=== PATIENT | male | born 1955 | race Caucasian/White ===

== ENCOUNTER → 2019-11-20 12:45 | Outpatient (POV) | payer MEDICARE, MEDICAID, SELFPAY ==
[2019-11-20 13:28] VITALS: BP 142/77; PULSE 77; RESP 18; O2SAT 98; BMI 36.6
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
== END ==
PROVIDERS: PCP Internal Medicine; Visit Provider Clinical Nurse Specialist Family Health
DX: M47.896 Other spondylosis, lumbar region (principal); M54.2 Cervicalgia; M54.12 Radiculopathy, cervical region
CPT/HCPCS: 99202

== ENCOUNTER → 2019-12-22 09:19 | Outpatient (POV) | payer MEDICARE, MEDICAID, SELFPAY ==
[2019-12-22 09:47] VITALS: BP 128/78; PULSE 74; RESP 18; TEMP 36.8; O2SAT 99; BMI 34.4
--- NOTE | 2019-12-22 11:39 | HMH.PAINSOAP ---
[facility] Pain Management SOAP Note Subjective:: Patient is pleasant 64-year-old white male who presents today for discussion after psychological evaluation for intrathecal pain pump. Patient was deemed an appropriate candidate. He was seen by Dr. Talon rosario in the past and had a stimulator placed. He states that it does help somewhat however it does not take care of his low back and left leg pain. Patient was also seen by ANGY Kilpatrick however due to a failed pill count he was discharged. At this time he is not on any narcotic medications. He states that he does not tolerate narcotic medications well. Patient is interested in a bupivacaine pain pump trial and pump. We discussed risks and benefits along with realistic goals and expectations. ROS General: no recent weight change, no fever, no sleep disturbances Respiratory: no cough, no shortness of air, no recurring pulmonary infections Cardiovascular/Peripheral Vascular: No chest pain, No palpitations, no edema, no shortness of breath. Gastrointestinal: no new onset incontinence, normal bowel movements reported Genitourinary: no new onset incontinence Musculoskeletal: Back pain, left leg pain Psychiatric: normal mood/ affect, Neurological: [denies new onset weakness in extremities], [denies new onset balance issues] Objective:: Physical Exam General: Alert and oriented x3, no acute distress, pleasant and cooperative, [on room air] Lungs: Resps E/U, Symmetrical chest expansion, Eyes: PERRL Musculoskeletal: Flexion and extension of lumbar spine somewhat guarded secondary to pain, deep tendon reflexes normal, strength in upper and lower extremities [5/5], [abnormal gait noted] Neurological: speech clear, dietitian assistant equal, no gross sensory deficits Assessment:: Degenerative disc disease lumbar spine lumbar radiculopathy, and cervical degenerative disc disease with cervical radiculopathy Plan:: We will set the patient up for a bupivacaine intrathecal pain pump trial. Patient is an appropriate psychological candidate for an intrathecal pain pump. I will follow-up with him after his trial reassess his symptoms at that time he has been instructed to call the office if he has any issues prior to his next appointment. He is not on any anticoagulation therapy. Dr. Bacon has reviewed this note and agrees with this plan of care. This note was dictated using voice recognition software and may contain errors or omissions [facility] History I have reviewed the patient's past medical history: Yes Medical History: Reports:: Hyperlipidemia, Hypertension Denies:: Diabetes Mellitus Type 1, Diabetes Mellitus Type 2 *Have you ever received a pneumonia vaccine?: Yes *Have you received a flu vaccine this season?: Yes Other Medical History: Reports: Arthritis Other Surgeries: Yes: Cholecystectomy, Hernia Repair Amputation: No Fractures: No - *Social History Smoking Status: Current every day smoker Tobacco Type: cigarettes # Packs/Day (cigarettes): 1 Alcohol Intake: never *Occupational Status:: other Housing: house Household Members: other *Travel in the last 8 weeks: None Family Hx:: Unable to obtain
== END ==
PROVIDERS: PCP Internal Medicine; Visit Provider Clinical Nurse Specialist Family Health
DX: M51.16 Intervertebral disc disorders with radiculopathy, lumbar region (principal); M50.10 Cervical disc disorder with radiculopathy, unspecified cervical region
CPT/HCPCS: 99212

== ENCOUNTER 2020-01-02 09:08 | Day surgery (SDC) | payer MEDICARE, MEDICAID, SELFPAY ==
[2020-01-02] VITALS (8 sets, daily range): BP systolic 122–167; BP diastolic 75–85; PULSE 65–89; RESP 18; TEMP 37.2; O2SAT 95–99; BMI 24.3
--- NOTE | 2020-01-02 10:15 | HMH.PMPROC ---
- Procedure Date: 01/02/20 Time: 10:15 Anesthesiologist:: Martinez Bacon MD Complications:: None Pre-procedure Diagnosis:: Degenerative disc disease of lumbar spine with lumbar radiculopathy symptoms and postlaminectomy syndrome lumbar spine Post-procedure Diagnosis:: Same Indications for Procedure:: This patient is a pleasant 64-year-old white male who we have been treating for low back pain with lumbar radiculopathy symptoms and postlaminectomy syndrome lumbar spine. He does have a spinal cord stimulator in place. He is doing well with his stimulator. He does have some increasing pain in his back and down his legs. He does not do well with opioids. He was recently discharged from Dr. Kilpatrick pain clinic for a missed pill count. He is failed all previous conservative therapy including previous surgery, injections, physical therapy and oral medications. He has had a successful psychological evaluation. He presents for intrathecal pump trial with bupivacaine today. Procedure Details:: Pain pump trial Informed consent was obtained and the risk and benefits of the procedure was explained to the patient. The patient was taken to the procedure room and placed prone on the procedure table. Patient was prepped and draped in sterile fashion. C-arm fluoroscopy was used to view the lumbar spine. The skin and subcutaneous tissues were anesthetized using lidocaine. I placed a 18-gauge spinal needle into the L4-5 interspace and advanced until clear CSF was obtained. After this intrathecal catheter was inserted and advanced very easily to the L1 vertebral body. The needle was withdrawn. We were able to freely withdraw clear CSF through the catheter. We then injected intrathecal bupivacaine with dextrose 3 mg single shot bolus followed by saline and followed by the previous CSF that was withdrawn. The needle and catheter were then removed and a Band-Aid was placed. Patient tolerated the procedure well with no complications. We reevaluated the patient after 30 minutes to 1 hour. He was also reassessed by physical therapy. He had significant pain relief. However I am not sure the patient really understands the implications of an intrathecal bupivacaine pain pump. I would like him seen in the clinic prior to proceeding with permanent placement. Plan and Disposition:: We will follow-up with him in the clinic to reevaluate his symptoms and make sure that he understands everything about the permanent intrathecal bupivacaine pain pump. We will also follow-up on his psychological evaluation to make sure he is an appropriate candidate for intrathecal therapy.
== END 2020-01-02 11:50 | disposition home or self-care (01) ==
LOC: SC.PAINP 09:11
PROVIDERS: PCP Internal Medicine; Visit Provider Anesthesiology
DX: M51.16 Intervertebral disc disorders with radiculopathy, lumbar region (principal); M96.1 Postlaminectomy syndrome, not elsewhere classified; I10 Essential (primary) hypertension; M79.7 Fibromyalgia; J44.9 Chronic obstructive pulmonary disease, unspecified; Z90.49 Acquired absence of other specified parts of digestive tract; Z72.0 Tobacco use
CPT/HCPCS: 62323; 96365

== ENCOUNTER → 2020-01-08 11:19 | Outpatient (POV) | payer MEDICARE, MEDICAID, SELFPAY ==
[2020-01-08 11:42] VITALS: BP 145/90; PULSE 74; RESP 18; TEMP 36.8; O2SAT 98; BMI 26.4
--- NOTE | 2020-01-08 12:28 | HMH.PAINSOAP ---
[facility] Pain Management SOAP Note Subjective:: Patient is a 64-year-old white male who presents today for follow-up after a intrathecal pain pump trial. He has been treated for chronic low back pain with lumbar radiculopathy symptoms as well as postlaminectomy syndrome lumbar spine. Patient does have a spinal cord stimulator. He is having pain in his low back with radiation into bilateral lower extremities. Patient was seen in a pain clinic in the past Dr. Kilpatrick clinic in [facility] and was receiving oral medications. Unfortunately, the patient did fail a pill count and, subsequently, was discharged from the clinic. Patient does not feel that the intrathecal trial gave him any relief. He does rate his pain a 7 out of 10 today. Says that he is unsure if he wants to continue with the intrathecal pain pump implant. He is more interested in oral medications. He and I did discuss that we do not prescribe oral medications due to the patient's recent failed pill count. Review of Systems General: No recent weight changes, no fever, no sleep disturbances Respiratory: No cough, no shortness of air, no recurring pulmonary infections Cardiovascular/peripheral vascular: No chest pain, no palpitations, no edema, no shortness of breath Gastrointestinal: No new onset incontinence, normal bowel movements reported Genitourinary: No new onset incontinence Musculoskeletal: Low back pain, bilateral lower extremity pain Psychiatric: Normal mood/affect Neurological: [Denies weakness in extremities], [denies balance issues] Objective:: Physical exam General: Alert and oriented x3, no acute distress, pleasant and cooperative, [on room air] Lungs: Respirations even and unlabored, symmetrical chest expansion Eyes: PERRL Musculoskeletal: Flexion and extension of bar spine somewhat guarded secondary to pain, deep tendon reflexes normal, strength in upper and lower extremities [5/5], antalgic gait noted Neurological: Speech clear, vault person equal, no gross sensory deficit Assessment:: Degenerative disc disease lumbar spine with lumbar radiculopathy symptoms, postlaminectomy syndrome lumbar spine Plan:: Patient is interested in oral medications, however, he and I did have a long conversation regarding his failed pill count and our inability to prescribe him oral medications. He is unsure if he wants to continue with the intrathecal pain pump implant. Patient will discuss possible oral medication management with his primary care provider and possible referral to another pain management clinic. He will be scheduled for a one-month follow-up and can decide at that time if he would like to proceed with the implant. We will follow-up with him at that time. He has been instructed to contact clinic if he has any concerns before his next appointment. The patient and I specifically discussed risk factors for COVID19. These risks include, but are not limited to age greater than 60, heart or lung disease, diabetes, immunosuppression, and travel. We also discussed NSAIDs may worsen COVID19 infection or symptoms. Patient should not use NSAIDs to treat COVID19 signs or symptoms. Patient was also informed that any type of corticosteroid of any form (oral or injection) will decrease the patient's immune system response and may increase the likelihood of COVID19 infection [address] symptoms[address] Bacon has reviewed this note and agrees with this plan of care. This note was dictated using voice recognition software and make contain errors or omissions. [facility] History I have reviewed the patient's past medical history: Yes Medical History: Reports:: Hyperlipidemia, Hypertension Denies:: Cancer, Diabetes Mellitus Type 1, Diabetes Mellitus Type 2, MRSA, Seizures *Have you ever received a pneumonia vaccine?: Yes *Have you received a flu vaccine this season?: Yes Other Medical History: Reports: Arthritis Other Surgeries: Yes: Cholecystectomy, Hernia Repair Amputation: No Frac
== END ==
PROVIDERS: PCP Internal Medicine; Visit Provider Clinical Nurse Specialist Family Health
DX: M51.16 Intervertebral disc disorders with radiculopathy, lumbar region (principal); M96.1 Postlaminectomy syndrome, not elsewhere classified
CPT/HCPCS: 99212

== ENCOUNTER → 2020-02-20 10:16 | Outpatient (POV) | payer MEDICARE, MEDICAID, SELFPAY ==
[2020-02-20 10:27] VITALS: BP 163/90; PULSE 76; RESP 20; TEMP 36.7; O2SAT 98; BMI 33.0
--- NOTE | 2020-02-20 10:41 | HMH.PAINSOAP ---
[facility] Pain Management SOAP Note Subjective:: This patient is a pleasant 64-year-old white male who had intrathecal pain pump trial for low back pain with lumbar radiculopathy symptoms. He does have a spinal cord stimulator in place which is helping with his radicular symptoms however he still has some significant back pain. He is also had previous surgery with postlaminectomy syndrome. He was previously discharged from Dr. Finesse estevez for failing a pill count. I have told him that we will not prescribe any oral narcotics. Patient did say that the intrathecal pain pump trial did help for that day. This was a successful intrathecal pump trial. We will plan on permanent placement of intrathecal pain pump with bupivacaine 5 mg per ml to start at 2.5 mg/day Objective:: Alert and oriented x3 no acute distress. Type patient does have an antalgic gait. Motor strength of lower extremities is 5/5. There is no gross sensory deficit. He does have significant pain over the lower lumbar spine. Assessment:: Degenerative disease of lumbar spine with lumbar radiculopathy symptoms and postlaminectomy syndrome lumbar spine Plan:: We will plan on permanent placement of intrathecal bupivacaine pain pump 5 mg per ml to start at 2.5 mg/day. Catheter tip will be at the L1 vertebral body. We will have him see Dr. Choudhury prior to permanent placement for evaluation of permanent placement of the battery. We will confirm that Jaylan and urine drug screen are appropriate prior to permanent placement. He has had an appropriate psychological evaluation. [facility] History Medical History: Reports:: Hyperlipidemia, Hypertension Denies:: Cancer, Diabetes Mellitus Type 1, Diabetes Mellitus Type 2, MRSA, Seizures *Have you ever received a pneumonia vaccine?: No *Have you received a flu vaccine this season?: No Other Medical History: Reports: Arthritis Other Surgeries: Yes: Cholecystectomy, Hernia Repair Amputation: No Fractures: No - *Social History Smoking Status: Current every day smoker Tobacco Type: cigarettes # Packs/Day (cigarettes): 1 Alcohol Intake: never *Occupational Status:: other Housing: house Household Members: other *Travel in the last 8 weeks: None Family Hx:: Unable to obtain
== END ==
PROVIDERS: PCP Internal Medicine; Visit Provider Anesthesiology
DX: M51.16 Intervertebral disc disorders with radiculopathy, lumbar region (principal); M96.1 Postlaminectomy syndrome, not elsewhere classified
CPT/HCPCS: 99212

== ENCOUNTER → 2020-04-20 09:27 | Outpatient (CLI) | payer MEDICARE, MEDICAID, SELFPAY ==
[2020-04-20 10:14] LABS: Basophils # 0.2 K/mm3 (0-0.2); Basophils % 1.6 % (0.1-2.0); Eosinophils # 0.3 K/mm3 (0.0-0.4); Eosinophils % 3.1 % (0.1-12.0); Hematocrit 52.7 % (42.0-52.0); Hemoglobin 17.9 g/dL (14.1-18.0); Lymphocytes # 4.1 K/mm3 (0.7-4.5); Lymphocytes % 37.5 % (10-50); Mean Corpuscular Hemoglobin 32.7 pg (27.0-31.2); Mean Corpuscular Volume 96.1 fl (80-94); Mean Platelet Volume 7.9 fl (7.4-10.4); Monocytes # 0.8 K/mm3 (0.1-1.0); Monocytes % 6.9 % (1.7-9.3); Neutrophils # 5.5 K/mm3 (1.8-7.8); Neutrophils % 50.9 % (37.0-80.0); Platelet Count 250 K/mm3 (142-424); Red Blood Count 5.48 M/mm3 (4.60-6.20); Red Cell Distribution Width 13.9 % (11.5-17.5); White Blood Count 10.9 K/mm3 (4.8-10.8)
[2020-04-20 10:23] LABS: Amphetamine/Metha Screen,Urine Negative ng/ml (<1000); Barbiturates Screen,Urine Negative ng/ml (<200)
[2020-04-20 10:24] LABS: Benzodiazepines Screen,Urine Negative ng/ml (<200)
[2020-04-20 10:25] LABS: Cannabinoid Screen,Urine Negative ng/ml (<50); Cocaine Screen,Urine Negative ng/ml (<300)
[2020-04-20 10:26] LABS: Methadone Screen,Urine Negative ng/ml (<300)
[2020-04-20 10:27] LABS: Opiate Screen,Urine Negative ng/ml (<300); Phencyclidine Screen,Urine Negative ng/ml (<25)
[2020-04-20 11:23] LABS: Coronavirus 19 IgG Antibody Negative (Negative); Coronavirus 19 IgM Antibody Negative (Negative)
[2020-04-20 15:19] LABS: Chloride 103 mmol/L (98-107); Potassium 4.4 mmoL/L (3.5-5.1); Sodium 138 mmol/L (136-145)
[2020-04-20 15:22] LABS: Anion Gap 12.4 mEq/L (5-15); Blood Urea Nitrogen 14 mg/dl (9-20); Calcium 9.8 mg/dl (8.4-10.2); Carbon Dioxide 27 mmol/L (22.0-30.0); Estimated Glomerular Filt Rate 85 ml/min (>60); GFR (African American) 103 ML/MIN (>60); Glucose 148 mg/dl (74-100)
== END ==
PROVIDERS: Visit Provider Anesthesiology
DX: Z01.818 Encounter for other preprocedural examination (principal); Z03.818 Encounter for observation for suspected exposure to other biological agents ruled out; M51.36 Other intervertebral disc degeneration, lumbar region
CPT/HCPCS: 36415; 80048; 80305; 85025; 86328

== ENCOUNTER 2020-04-21 07:05 | Day surgery (SDC) | payer MEDICARE, MEDICAID, SELFPAY ==
[2020-04-21 08:09] VITALS: BP 154/81; PULSE 63; RESP 16; TEMP 36.1; O2SAT 96; BMI 34.4
--- NOTE | 2020-04-21 08:32 | P.CONS_ITS ---
Assessment and Plan - Assessment and plan all Dx Assessment and Plan for all problems:: Impression-degenerative disc disease of the lumbar spine with radiculopathy Plan-placement of intrathecal pain pump system today HPI - Data of Consult Patient: new to practice Consult date: 04/21/20 Requesting Physician: Martinez Bacon MD Primary Care Provider: Wolf Perales - Consult Narrative History of present illness: Mr. Nathan is a 65 year old male with chronic back pain. Patient had a stimulator placed improvement in some of his pain. He had a pain pump trial with improvement in his residual pain. He comes in today for placement of an intrathecal pain pump system. CC: Martinez Bacon MD Back pain [facility] History I have reviewed the patient's past medical history: Yes Medical History: Reports:: Hyperlipidemia, Hypertension Denies:: Cancer, Diabetes Mellitus Type 1, Diabetes Mellitus Type 2, Internal Pacemaker, MRSA, Seizures *Have you ever received a pneumonia vaccine?: No *Have you received a flu vaccine this season?: No Other Medical History: Reports: Arthritis. Denies: Blood Transfusion Reaction Comment:: Illnesses-cigarette abuse, chronic back pain, hypertension, COPD with asthma, fibromyalgia Other Surgeries: Yes: Cholecystectomy, Hernia Repair. No: Pacemaker Amputation: No Fractures: No Comment: Operations-hernia repair, ear surgery, placement of pain stimulator system - *Social History Last grade of school completed: 11th or 12th Smoking Status: Current every day smoker Tobacco Type: cigarettes # Packs/Day (cigarettes): 1 Alcohol Intake: never *Occupational Status:: unemployed Housing: house Household Members: none *Travel in the last 8 weeks: None Family Hx:: Unable to obtain Review of Systems - Review of Systems Review of systems:: pertinent systems reviewed and negative unless documented below Meds Home Medications Medication Instructions Recorded Confirmed Type Loratadine 10 mg PO DAILY 11/20/19 04/21/20 History Metoprolol Succinate [Metoprolol 25 mg PO DAILY 11/20/19 04/21/20 History Succinate 25mg Tablet*] Omeprazole [Omeprazole 40mg 40 mg PO DAILY 11/20/19 04/21/20 History Capsule] Pravastatin Sodium 80 mg PO HS 11/20/19 04/21/20 History Tamsulosin HCl 0.4 mg PO DAILY 11/20/19 04/21/20 History Allergies Allergy/AdvReac Type Severity Reaction Status Date / Time No Known Allergies Allergy Verified 04/21/20 08:08 Objective Vital signs: Temp Pulse Resp BP Pulse Ox 97.0 F L 63 16 154/81 H 96 04/21/20 08:09 04/21/20 08:09 04/21/20 08:09 04/21/20 08:09 04/21/20 08:09 Comments: Pale white male in no distress - *Routine Respiratory Exam Present: CTA bilaterally Comments: Decreased breath sounds - *Routine Cardiovascular Exam Present: RRR - *Routine Abdominal Exam Present: soft
--- NOTE | 2020-04-21 10:12 | HMH.ANESCL ---
[facility] Anesthesia Checklist - Patient Identification Patient Identification: Arm Band, Verbal (Name & ) - Structural Data Admitted From: Home Planned Operative Procedure/s: Placement of intrathecal pain pump Consent for Planned Operative Procedure(s) Verified: Yes Verified Documents: Surgical Consent, History and Physical - NPO Status Verified Time NPO: 00:00 - Chart Verification Results Verified: CBC, BMP - Additional verifications Anesthesia Reactions: No Hx Blood Transfusions: No Blood Transfusion Reaction: No - Airway Assessment C-Spine Mobility Assessed: Yes (limited neck ROM, MP 2, TMD 3) TMJ Mobility Assessed: Yes Dentition: Edentulous - Neurological Assessment Level of Consciousness: Awake, Alert, Appropriate, Follows Commands Hx Seizures: No Numbness or tingling in extremities: No - Anesthesia Plan Anesthesia Risk discussed: Yes Anesthesia Plan: Verified ASA Class: III Anesthesia Type: [facility] History I have reviewed the patient's past medical history: Yes Medical History: Reports:: Asthma, Chronic Obstructive Pulmonary Disease (COPD), Gastroesophageal Reflux Disease(GERD), Hyperlipidemia, Hypertension Denies:: Cancer, Diabetes Mellitus Type 1, Diabetes Mellitus Type 2, Internal Pacemaker, MRSA, Seizures *Have you ever received a pneumonia vaccine?: No *Have you received a flu vaccine this season?: No Other Medical History: Reports: Arthritis. Denies: Blood Transfusion Reaction Comment:: obesity Anesthesia experience/problems:: None Other Surgeries: Yes: Cholecystectomy, Hernia Repair. No: Pacemaker Amputation: No Fractures: No - *Social History Last grade of school completed: 11th or 12th Smoking Status: Current every day smoker Tobacco Type: cigarettes # Packs/Day (cigarettes): 1 Alcohol Intake: never Substance Use Type: denies use *Occupational Status:: unemployed Housing: house Household Members: none *Travel in the last 8 weeks: None Family Hx:: Unable to obtain
[2020-04-21 10:55] VITALS: TEMP 43; TEMP 6.1
--- NOTE | 2020-04-21 11:10 | HMH.OPNOTE ---
Date of procedure: 04/21/20 Pre-op Diagnosis:: Degenerative disc disease of the lumbar spine with radiculopathy Post-op Diagnosis:: Same Procedure performed:: Placement of intrathecal pain pump generator Surgeon:: Leobardo Choudhury MD [employer] ADMINISTRATOR:: Homero Fairchild, Olegario Malone, Dank Chowdhury, Flaquito Swan, Federico Anesthesia: MAC Estimated blood loss (mL): 5 Operative findings:: Not applicable Operative note:: Once adequate IV sedation was obtained by anesthesia and local anesthesia was 1% Xylocaine with epinephrine the patient was placed prone on the operating table in his back and flank regions were prepped and draped in sterile fashion. Paraspinal incision was made by Dr. Garcai there which an intrathecal catheter was passed into the intrathecal space to the area desired by Dr. Garcia. The catheter was then fixed the paraspinal fascia with fixation devices and 2-0 Prolene sutures. A left flank incision was then made under his right a pocket for placement of the reservoir. Utilizing towel device the catheter was passed from the paraspinal incision to the pocket incision. Both pockets irrigated with antibiotic solution. Catheter fixed to the generator which was placed in the pocket. CSF was aspirated from the generator noting patency of the system. Subcutaneous tissue was then closed with a stitch of 2-0 Vicryl and skin closed with stitches of 4-0 nylon. Wound VAC dressings and a binder applied to the wound. The patient taught procedure well was taken recovery solution. Upon recovery the patient will be discharged home will follow-up in 1 week for removal of the wound VAC system in 2 weeks removal of sutures. Antibiotic x1 week per protocol. The patient tolerated the procedure well. Condition: stable Disposition: PACU Complications:: None
[2020-04-21 11:22] VITALS: BP 140/78; PULSE 82; RESP 18; TEMP 36.3; O2SAT 95
--- NOTE | 2020-04-21 11:23 | HMH.OPNOTE ---
Date of procedure: 04/21/20 Pre-op Diagnosis:: Degenerative disc disease of lumbar spine with lumbar radiculopathy symptoms and postlaminectomy syndrome lumbar spine Post-op Diagnosis:: Same Procedure performed:: Intrathecal catheter placement with tunneling for permanent intrathecal pain pump Surgeon:: Martinez Bcaon MD TEST KITCHEN HOME ECONOMIST:: Homero Fairchild Anesthesia: MAC Estimated blood loss (mL): 5 Clinical Note:: This patient is a pleasant 64-year-old white male who we are treating for low back pain with lumbar radicular symptoms. He is failed all previous conservative treatments. He has had failed previous injections, oral medications. He was previously discharged from Dr. Finesse estevez for failing a pill count. We will not prescribe him any oral narcotics. He is also failed previous surgery and physical therapy. He has had a successful psychological evaluation. He is also had a successful intrathecal pump trial. He also has a spinal cord stimulator in place. He continues to have increasing low back pain. We will plan on permanent placement of intrathecal pain pump today. Operative findings:: None Operative note:: Informed consent was obtained and the risk and benefits of the procedure was explained to the patient. Patient was taken to the operating room placed prone on the procedure table. He was prepped and draped in sterile fashion. C-arm fluoroscopy was used to view the lumbar spine. The skin and subcutaneous tissues adjacent to the L4-L5 and L5-S1 interspace were anesthetized using lidocaine. I made an incision and dissected down to the lumbar paraspinous fascia. A 14-gauge spinal needle was inserted and advanced into the L4-5 interspace until clear CSF was obtained. After this intrathecal catheter was inserted and advanced very easily to the L1 vertebral body. The stylette of the catheter and the needle withdrawn. The catheter secured to the fascia with 2 anchoring devices and 2-0 Prolene. I tunneled the catheter from the back to the pump pocket created by Dr. Choudhury. I had prepared the pump with 20 mL of intrathecal bupivacaine 5 mg/mL. I attached the catheter to the pump. We placed the pump in the pump pocket. We were able to freely withdraw clear CSF through the side-port. Both incisions were irrigated with bacitracin solution. Both incisions were then closed with 2-0 Vicryl followed by 4-0 nylon. A wound VAC was placed over both incisions. The patient was placed in a abdominal binder and taken recovery in stable condition. Patient tolerated the procedure well with no complications. The pump was interrogated and started at 2.5 mg/day of intrathecal bupivacaine. Patient was discharged home neurologically intact and with good relief of pain symptoms. Plan and disposition: We will follow-up with this patient in 1 week for wound check and reprogramming. We will follow-up in 2 weeks for suture removal and reprogramming. If patient has any problems or questions he is to call us back in the pain clinic. Condition: stable Disposition: PACU Complications:: None
[2020-04-21 11:37] VITALS: BP 133/89; PULSE 71; RESP 18; O2SAT 97
[2020-04-21 11:52] VITALS: BP 138/82; PULSE 80; RESP 18; O2SAT 97
--- NOTE | 2020-04-22 12:09 | PC.NURSE ---
called in Rx for Tramadol 50mg TID # 15 per md order.
== END 2020-04-21 11:52 | disposition home or self-care (01) ==
PROVIDERS: PCP Internal Medicine; Visit Provider Anesthesiology
DX: M51.16 Intervertebral disc disorders with radiculopathy, lumbar region (principal); M96.1 Postlaminectomy syndrome, not elsewhere classified; E78.5 Hyperlipidemia, unspecified; I10 Essential (primary) hypertension; M19.90 Unspecified osteoarthritis, unspecified site; J44.9 Chronic obstructive pulmonary disease, unspecified; M79.7 Fibromyalgia; Z72.0 Tobacco use; Z79.899 Other long term (current) drug therapy
CPT/HCPCS: 62350; 62362; 96374; C1755; C1772; J3370

== ENCOUNTER → 2020-04-26 09:56 | Outpatient (POV) | payer MEDICARE, MEDICAID, SELFPAY ==
--- NOTE | 2020-04-26 10:29 | HMH.PMPROC ---
- Procedure Date: 04/26/20 Time: 10:29 Anesthesiologist:: Inga Estrella APRN Complications:: None Pre-procedure Diagnosis:: Degenerative disc disease lumbar spine lumbar radiculopathy symptoms and postlaminectomy syndrome lumbar spine Post-procedure Diagnosis:: Same Indications for Procedure:: Patient is a pleasant 9-[id number]-dsc-year-old white male who presents today for intrathecal pain pump adjustment. Patient has failed previous conservative treatments. He is failed previous injections, oral medications. He has been discharged from Dr. Kilpatrick clinic for failing a pill count. He was started on a bupivacaine infusion of 2.5 mg/day he states he is not having any numbness or weakness or any kind of side effects to this. His wound VAC was removed stitches are intact and in place. Patient rates his pain a 4 out of 10. He would like a slight increase today. Physical Exam General: Alert and oriented x3, no acute distress, pleasant and cooperative, [on room air] Lungs: Resps E/U, Symmetrical chest expansion, Eyes: PERRL Musculoskeletal: Flexion and extension of lumbar spine somewhat guarded secondary to pain, deep tendon reflexes normal, strength in upper and lower extremities [5/5], [abnormal gait noted] Neurological: speech clear, human services professional equal, no gross sensory deficits Procedure Details:: Informed consent was obtained and the risk and benefits of the procedure were explained to the patient. The patient was taken to the procedure room where noninvasive monitoring was placed including noninvasive blood pressure cuff and pulse oximeter. Patient's pump was interrogated and reprogrammed. The infusion rate was increased to 3 mg of bupivacaine a day. The patient tolerated the procedure well. Plan and Disposition:: We will see the patient back in 2 weeks reassess his symptoms at that time he has been instructed to call the office if he has any issues prior to his next appointment. Dr. Bacon has reviewed this note and agrees with this plan of care. This note was dictated using voice recognition software and may contain errors or omissions
[2020-04-26 10:43] VITALS: BP 136/85; PULSE 74; RESP 18; O2SAT 98; BMI 33.4
== END ==
PROVIDERS: Visit Provider Clinical Nurse Specialist Family Health
DX: M51.16 Intervertebral disc disorders with radiculopathy, lumbar region (principal); M96.1 Postlaminectomy syndrome, not elsewhere classified
CPT/HCPCS: 62368

== ENCOUNTER → 2020-05-10 08:57 | Outpatient (POV) | payer MEDICARE, MEDICAID, SELFPAY ==
[2020-05-10 09:12] VITALS: BP 141/75; PULSE 77; RESP 18; TEMP 36.8; O2SAT 98; BMI 32.3
--- NOTE | 2020-05-10 09:18 | HMH.PMPROC ---
- Procedure Date: 05/10/20 Time: 09:18 Anesthesiologist:: Inga Estrella APRN Complications:: None Pre-procedure Diagnosis:: Degenerative disc disease lumbar spine lumbar radiculopathy symptoms and postlaminectomy syndrome lumbar spine Post-procedure Diagnosis:: Same Indications for Procedure:: Patient is a very pleasant 65-year-old white male who presents today for intrathecal pain pump adjustment. He has failed previous conservative treatments. He is failed previous injections and was started on a bupivacaine infusion intrathecally. He has been discharged from Dr. Kilpatrick clinic for failing a pill count in the past. Patient will have his stitches removed today overall he is doing well however he is having some right hip and leg numbness. He rates his pain today 3 out of 10. He states that this numbness is worse in the morning when he gets up. We will switch him to multiple right and decrease the amount of medication he is getting at nighttime. Procedure Details:: Informed consent was obtained and the risk and benefits of the procedure were explained to the patient. The patient was taken to the procedure room where noninvasive monitoring was placed including noninvasive blood pressure cuff and pulse oximeter. Patient's pump was interrogated and reprogrammed. The infusion rate was changed to 1 mg between 10 PM and 7 AM and 2 mg between 7 AM and 10 PM for total daily dose of 3 mg/day. The patient tolerated the procedure well. Plan and Disposition:: We will follow up with the patient at his next intrathecal pain pump refill and reprogram he has been instructed to call the office if he has any issues prior to his next appointment. Dr. Bacon has reviewed this note and agrees with this plan of care. This note was dictated using voice recognition software and may contain errors or omissions
== END ==
PROVIDERS: Visit Provider Clinical Nurse Specialist Family Health
DX: M51.16 Intervertebral disc disorders with radiculopathy, lumbar region (principal); M96.1 Postlaminectomy syndrome, not elsewhere classified
CPT/HCPCS: 62368

== ENCOUNTER 2020-05-21 09:58 | Day surgery (SDC) | payer MEDICARE, MEDICAID, SELFPAY ==
[2020-05-21 10:42] VITALS: BP 120/76; PULSE 70; RESP 18; TEMP 36.1; O2SAT 97; BMI 31.3
[2020-05-21 11:13] VITALS: BP 125/85; PULSE 85; RESP 18; O2SAT 98
[2020-05-21 11:21] VITALS: BP 132/85; PULSE 85; RESP 18; O2SAT 99
--- NOTE | 2020-05-21 11:24 | P.PCN_ITS ---
- Procedure Date: 05/21/20 Time: 11:24 Anesthesiologist:: Martinez Bacon MD Complications:: None Pre-procedure Diagnosis:: Degenerative disc disease of lumbar spine with lumbar radiculopathy symptoms and postlaminectomy syndrome lumbar spine Post-procedure Diagnosis:: Same Indications for Procedure:: This patient is a pleasant 65-year-old white male who we are treating for low back pain with lumbar radiculopathy symptoms. He has been started on intrathecal bupivacaine infusion because he failed previous pill counts and is not a candidate for any narcotic therapy. He continues have some significant numbness with periodic flow of intrathecal bupivacaine. This is also not helping his pain very much. We will switch him back to a constant flow and given PTC boluses of 0.3 mg up to 6 times a day. This to be a 4-hour lockout. Jaylan and urine drug screen are all appropriate Jaylan [phone]. We will refill his pump with 20 mils of intrathecal bupivacaine and increase his yulia ntration to 10 mg/mL. He does have an antalgic gait. Motor strength of the lower extremities is 5/5. There is no gross sensory deficit. He only has episodic numbness of his right leg. No neurological changes. Procedure Details:: Pain pump refill informed consent was obtained and the risks and benefits of the procedure was explained to the patient. The patient was taken to the procedure room. The pump was interrogated. The area over the pump was prepped using ChloraPrep. The pump was accessed with a 22-gauge needle. Approximately 2 mL's of the intrathecal solution was withdrawn and discarded. The pump was then refilled with 20 mL's of intrathecal bupivacaine 10 mg/mL. The pump was interrogated and the infusion was changed to 3 mg/day of intrathecal bupivacaine constant flow with PTC boluses of 0.3 mg up to 6 times a day with a 4-hour lockout. The patient tolerated the procedure well with no complication. Plan and Disposition:: We will follow-up with him in 2 weeks. Will reevaluate symptoms at that time.
[2020-05-21 11:35] VITALS: BP 148/89; PULSE 68; RESP 20; O2SAT 97
== END 2020-05-21 11:35 | disposition home or self-care (01) ==
LOC: SC.PAINP 09:59
PROVIDERS: PCP Internal Medicine; Visit Provider Anesthesiology
DX: M51.16 Intervertebral disc disorders with radiculopathy, lumbar region (principal); M96.1 Postlaminectomy syndrome, not elsewhere classified
CPT/HCPCS: 95991

== ENCOUNTER → 2020-07-08 08:03 | Outpatient (POV) | payer MEDICARE, SELFPAY ==
[2020-07-08 08:15] VITALS: BP 150/82; PULSE 82; RESP 20; TEMP 36.3; O2SAT 96; BMI 29.8
--- NOTE | 2020-07-08 08:29 | HMH.PAINSOAP ---
[facility] Pain Management SOAP Note Subjective:: Patient is a 65-year-old white male who presents today for complaints of severe numbness from his waist down. Patient does have an intrathecal pain pump for which he is being treated for pain due to degenerative disc disease lumbar spine with lumbar radiculopathy symptoms and postlaminectomy syndrome lumbar spine. Patient says that he has fallen approximately 3 or 4 times, questioning if he is injured his left shoulder. He says that he is also having difficulty voiding due to the severe numbness. He is very concerned that he is not able to tolerate the medication. He is asking for a change in the medicine. Patient does have a history of a failed pill count at Dr. ANGY Kilpatrick's office. He was discharged from Dr. Kilpatrick clinic, as a result. Before implanting the pump, he and I did discuss that we would likely not be able to use any type of controlled substance in the pump. He is accompanied by his Sister Alma Summers who is a patient also in our clinic with an intrathecal pump. She is asking that we place pain meds in the pump . Patient I did discuss that we would need to discuss this with Dr. CRISELDA Fields before proceeding. Review of Systems General: No recent weight changes, no fever, no sleep disturbances Respiratory: No cough, no shortness of air, no recurring pulmonary infections Cardiovascular/peripheral vascular: No chest pain, no palpitations, no edema, no shortness of breath Gastrointestinal: No new onset incontinence, normal bowel movements reported Genitourinary: Inability to void Musculoskeletal: Numbness from waist down with inability to void Psychiatric: Normal mood/affect Neurological: Weakness in lower extremities, recent falls Objective:: Physical exam General: Alert and oriented x3, no acute distress, pleasant and cooperative, [on room air] Lungs: Respirations even and unlabored, symmetrical chest expansion Eyes: PERRL Musculoskeletal: Flexion and extension of spine non Guarded secondary to pain, deep tendon reflexes normal, strength in upper and lower extremities [5/5], [abnormal gait noted] Neurological: Speech clear, elementary special education teacher equal, no gross sensory deficit Assessment:: Degenerative disc disease lumbar spine with lumbar radiculopathy symptoms, postlaminectomy syndrome lumbar spine Plan:: Patient's pump was placed at 0 mg/day today. There is concern for the patient falling. He is also having difficulty voiding due to the medication. Patient is complaining of left shoulder pain as well as due to the fall. We will send him for an x-ray of his left shoulder. I will discuss a further plan of care with Dr. Jain and contact the family today regarding the plan of care. I am uncertain that we will be able to put any other medication in his intrathecal pump. We will contact his Sister Alma Renee at [phone] after further discussion with Dr. Jain. Dr. Bacon has reviewed this note and agrees with this plan of care. This note was dictated using voice recognition software and make contain errors or omissions. [facility] History I have reviewed the patient's past medical history: Yes Medical History: Reports:: Asthma, Chronic Obstructive Pulmonary Disease (COPD), Gastroesophageal Reflux Disease(GERD), Hyperlipidemia, Hypertension Denies:: Cancer, Diabetes Mellitus Type 1, Diabetes Mellitus Type 2, Internal Pacemaker, MRSA, Seizures *Have you ever received a pneumonia vaccine?: No *Have you received a flu vaccine this season?: No Other Medical History: Reports: Arthritis. Denies: Blood Transfusion Reaction Other Surgeries: Yes: Cholecystectomy, Hernia Repair. No: Pacemaker Amputation: No Fractures: No - *Social History Smoking Status: Current every day smoker Tobacco Type: cigarettes # Packs/Day (cigarettes): 1 Alcohol Intake: never Substance Use Type: denies use *Occupational Status:: retired Housing: house Household Members: spouse *Travel in the last 8 weeks: None Family Hx::
--- NOTE | 2020-07-08 08:36 | XR_ITS ---
PROCEDURE: XR SHOULDER LT MIN 2V CLINICAL INDICATION: LT SHOULDER PAIN COMPARISON: No exams were available for comparison FINDINGS: No fracture or dislocation. No lytic or blastic change. There is normal mineralization. There are mild osteoarthritic changes at the acromioclavicular joint with spurring along the undersurface of the acromion Other findings:None. IMPRESSION: No acute fracture. Spurring along the undersurface of the acromion with mild osteoarthritis of the AC joint Dictated by: Kp Woods MD 07/08/2020 14:16 Kp Woods MD in [place] 07/08/2020 14:16
== END ==
LOC: SC.PAIN 08:06
PROVIDERS: PCP Internal Medicine; Visit Provider Clinical Nurse Specialist Family Health
DX: M51.16 Intervertebral disc disorders with radiculopathy, lumbar region (principal); M96.1 Postlaminectomy syndrome, not elsewhere classified; M25.519 Pain in unspecified shoulder
CPT/HCPCS: 62368; 73030

== ENCOUNTER → 2020-07-16 10:49 | Outpatient (POV) | payer MEDICARE, SELFPAY ==
[2020-07-16 11:51] VITALS: BP 158/76; PULSE 69; RESP 18; O2SAT 98; BMI 34.4
--- NOTE | 2020-07-16 12:07 | P.CONS_ITS ---
[facility] Pain Management SOAP Note Subjective:: This patient is a pleasant 65-year-old white male who we are treating for left shoulder pain and low back pain with lumbar radiculopathy symptoms. We are seeking approval for a left shoulder intra-articular injection. We are awaiting approval for this injection as he has significant pain in the left shoulder joint. We have turned his pump off as he was complaining of numbness with his intrathecal bupivacaine infusion. He has a problem with narcotics in the past so we will not be filling his pump with intrathecal narcotics so we will seek approval for another nonnarcotic medication which is ziconotide. Objective:: Alert and oriented x3 no acute distress. Decreased range of motion left shoulder. Tenderness over the acromioclavicular joint. Assessment:: Degenerative osteoarthritis left shoulder. Degenerative disc disease of lumbar spine with lumbar radiculopathy symptoms with increasing pain and intolerance to intrathecal bupivacaine. Plan:: We will seek approval for intrathecal ziconotide. He is not a candidate for any narcotic therapy in his pump. We are also awaiting approval for a left intra- articular shoulder injection. [facility] History Medical History: Reports:: Asthma, Chronic Obstructive Pulmonary Disease (COPD), Gastroesophageal Reflux Disease(GERD), Hyperlipidemia, Hypertension Denies:: Cancer, Diabetes Mellitus Type 1, Diabetes Mellitus Type 2, Internal Pacemaker, MRSA, Seizures *Have you ever received a pneumonia vaccine?: No *Have you received a flu vaccine this season?: No Other Medical History: Reports: Arthritis. Denies: Blood Transfusion Reaction Other Surgeries: Yes: Cholecystectomy, Hernia Repair. No: Pacemaker Amputation: No Fractures: No - *Social History Smoking Status: Current every day smoker Tobacco Type: cigarettes # Packs/Day (cigarettes): 1 Alcohol Intake: never Substance Use Type: denies use *Occupational Status:: disabled Housing: house Household Members: spouse *Travel in the last 8 weeks: None Family Hx:: Unable to obtain
== END ==
LOC: SC.PAIN 10:53
PROVIDERS: PCP Internal Medicine; Visit Provider Anesthesiology
DX: M25.512 Pain in left shoulder (principal); M54.5 Low back pain; M54.16 Radiculopathy, lumbar region
CPT/HCPCS: 99212; G0463

== ENCOUNTER 2020-07-23 08:56 | Day surgery (SDC) | payer MEDICARE, SELFPAY ==
[2020-07-23 09:18] VITALS: BP 139/80; PULSE 73; RESP 18; TEMP 36.4; O2SAT 98; BMI 35.5
[2020-07-23 10:19] VITALS: BP 122/78; PULSE 78; RESP 18
[2020-07-23 10:21] VITALS: BP 128/89; PULSE 74; RESP 18; O2SAT 98
--- NOTE | 2020-07-23 10:23 | HMH.PMPROC ---
- Procedure Date: 07/23/20 Time: 10:24 Anesthesiologist:: Martinez Bacon MD Complications:: None Pre-procedure Diagnosis:: Left shoulder pain with AC joint arthritis Post-procedure Diagnosis:: Same Indications for Procedure:: This patient is a pleasant 65-year-old white male who we are treating for low back pain with lumbar radiculopathy symptoms and left shoulder pain. He currently has an intrathecal bupivacaine pain pump in place. He is not doing well with bupivacaine because of side effects we are awaiting approval for ziconotide to change the medicine in his pump. He is also complaining of left shoulder pain with acromioclavicular joint arthritis. We will do a left shoulder injection into the left acromioclavicular joint today. Procedure Details:: Left shoulder injection Informed consent was obtained and the risk and benefits of the procedure were explained to the patient. Patient was taken the procedure room. Left shoulder was prepped using ChloraPrep. 25-gauge needle was used we injected 10 mL bupivacaine 0.25% and Depo-Medrol 40 mg into the left shoulder. Patient tolerated the procedure well with no complications. Plan and Disposition:: We will follow-up with him in 2 weeks. Will reevaluate symptoms at that time. When we get approval for ziconotide in his pain pump we will change out his pump medication.
[2020-07-23 10:27] VITALS: BP 148/70; PULSE 64; RESP 98; O2SAT 98
== END 2020-07-23 10:28 | disposition home or self-care (01) ==
LOC: SC.PAINP 08:57
PROVIDERS: PCP Internal Medicine; Visit Provider Anesthesiology
DX: I10 Essential (primary) hypertension (principal); M19.012 Primary osteoarthritis, left shoulder; J44.9 Chronic obstructive pulmonary disease, unspecified; K21.9 Gastro-esophageal reflux disease without esophagitis; E78.5 Hyperlipidemia, unspecified; Z72.0 Tobacco use; M79.18 Myalgia, other site; N40.0 Benign prostatic hyperplasia without lower urinary tract symptoms; G43.909 Migraine, unspecified, not intractable, without status migrainosus; Z79.899 Other long term (current) drug therapy
CPT/HCPCS: 20610; J1040

== ENCOUNTER 2020-08-06 08:24 | Day surgery (SDC) | payer MEDICARE, MEDICAID, SELFPAY ==
[2020-08-06 08:29] VITALS: BP 153/72; PULSE 72; RESP 18; TEMP 36.6; O2SAT 98; BMI 32.8
[2020-08-06 09:58] VITALS: BP 154/78; PULSE 75; RESP 18; O2SAT 98
[2020-08-06 09:59] VITALS: BP 155/79; PULSE 74; RESP 18; O2SAT 98
--- NOTE | 2020-08-06 10:09 | HMH.PMPROC ---
- Procedure Date: 08/06/20 Time: 10:09 Anesthesiologist:: Martinez Bacon MD Complications:: None Pre-procedure Diagnosis:: Degenerative disc disease of the lumbar spine with lumbar radiculopathy symptoms Post-procedure Diagnosis:: Same Indications for Procedure:: Patient is a pleasant 65-year-old white male who we are treating for low back pain with lumbar radiculopathy symptoms and left shoulder pain. He has done well with his left shoulder injection. He did not do well with intrathecal bupivacaine in his pain pump. It did not help his pain symptoms. He presents for medication change out to intrathecal ziconotide today. He does have an antalgic gait. Motor strength of lower extremities is 5/5. There is no gross sensory deficit. Procedure Details:: Pain pump refill informed consent was obtained and the risks and benefits of the procedure was explained to the patient. The patient was taken to the procedure room. The pump was interrogated. The area over the pump was prepped using ChloraPrep. The pump was accessed with a 22-gauge needle. Approximately 5 mL's of the intrathecal solution was withdrawn and discarded. We did a washout with 3 2 mL syringes of intrathecal ziconotide. The pump was then refilled with 14 mL's of intrathecal [ziconotide 25 mcg/mL]. We were unable to aspirate intrathecal bupivacaine from the catheter so we did inject dye through the catheter knowing that he would get 1.5 mL of intrathecal bupivacaine. Catheter was in good position and patent. We did do catheter aspiration after priming bolus to get the rest of the bupivacaine from the pump tubing. The pump was interrogated and the infusion was started at 0.5 mcg boluses twice a day on periodic flow. The patient tolerated the procedure well with no complication. Plan and Disposition:: We will follow-up with him in 1 week. We will reevaluate his symptoms and make changes to his infusion as needed.
[2020-08-06 10:52] VITALS: BP 140/81; PULSE 64; RESP 18; O2SAT 98
--- NOTE | 2020-08-06 10:56 | PC.NURSE ---
1125-pt c/o numbness to BLE. able to stand but unable to walk d/t numbness. 1142-pt reports continued numbness to bilateral hips. able to stand but unable to walk 1052-pt able to stand and walk with steady gait.
== END 2020-08-06 10:52 | disposition home or self-care (01) ==
LOC: SC.PAINP 08:25
PROVIDERS: PCP Internal Medicine; Visit Provider Anesthesiology
DX: M51.16 Intervertebral disc disorders with radiculopathy, lumbar region (principal); I10 Essential (primary) hypertension; E78.5 Hyperlipidemia, unspecified; N40.0 Benign prostatic hyperplasia without lower urinary tract symptoms; Z45.1 Encounter for adjustment and management of infusion pump; Z72.0 Tobacco use; K21.9 Gastro-esophageal reflux disease without esophagitis; M79.7 Fibromyalgia
CPT/HCPCS: 62370; C1772; Q9966

== ENCOUNTER → 2020-08-12 08:59 | Outpatient (POV) | payer MEDICARE, MEDICAID, SELFPAY ==
--- NOTE | 2020-08-12 09:24 | HMH.PMPROC ---
- Procedure Date: 08/12/20 Time: 09:24 Anesthesiologist:: Inga Estrella APRN Complications:: None Pre-procedure Diagnosis:: Degenerative disc disease lumbar spine lumbar radiculopathy, back pain Post-procedure Diagnosis:: Same Indications for Procedure:: Patient is a pleasant 65-year-old white female who presents today for intrathecal pain pump adjustment. He is started on ziconotide he denies side effects. Patient states that the numbness in his legs has resolved. Patient is having some soreness around the pump. We discussed diclofenac gel for this area. Patient rates his pain today 6 out of 10. Will increase his ziconotide infusion. Patient is currently on 0.5 mcg every 12 hours Procedure Details:: Informed consent was obtained and the risk and benefits of the procedure were explained to the patient. The patient was taken to the procedure room where noninvasive monitoring was placed including noninvasive blood pressure cuff and pulse oximeter. Patient's pump was interrogated and reprogrammed. The infusion rate was increased to 0.5 mcg every 8 hours for a total daily dose of 1.5 mcg of ziconotide. The patient tolerated the procedure well. Plan and Disposition:: We will see the patient back in 2 weeks for any additional changes he may need. He has been instructed to call the office if he has any issues prior to his next appointment. Dr. Bcaon has reviewed this note and agrees with this plan of care. This note was dictated using voice recognition software and may contain errors or omissions
[2020-08-12 09:56] VITALS: BP 122/74; PULSE 84; RESP 18; O2SAT 99; BMI 32.8
== END ==
PROVIDERS: PCP Internal Medicine; Visit Provider Clinical Nurse Specialist Family Health
DX: M51.16 Intervertebral disc disorders with radiculopathy, lumbar region (principal)
CPT/HCPCS: 62368

== ENCOUNTER → 2020-08-26 09:22 | Outpatient (POV) | payer MEDICARE, MEDICAID, SELFPAY ==
[2020-08-26 09:55] VITALS: BP 135/85; PULSE 74; RESP 18; TEMP 36.8; O2SAT 98; BMI 33.9
--- NOTE | 2020-08-26 10:14 | HMH.PMPROC ---
- Procedure Date: 08/26/20 Time: 10:14 Anesthesiologist:: Inga Estrella APRN Complications:: None Pre-procedure Diagnosis:: Degenerative disc disease lumbar spine lumbar radiculopathy and back pain Post-procedure Diagnosis:: Same Indications for Procedure:: Patient is a frustrated 65-year-old white female who presents today for intrathecal pain pump adjustment. Patient sister is also with him today. Patient states he has not having any relief from his ziconotide. Patient was put on ziconotide and bupivacaine due to addiction issues. Patient did not tolerate bupivacaine he rates his pain a 6 out of 10. He states that he is now having memory issues. Patient has stated this in the past. Patient sister states that this medication is terrible stuff . Patient sister states that she does not understand why he cannot be put on pain medication . I discussed with him that I would be happy to turn off his intrathecal pump today. They would like to move forward with this. Procedure Details:: Informed consent was obtained and the risk and benefits of the procedure were explained to the patient. The patient was taken to the procedure room where noninvasive monitoring was placed including noninvasive blood pressure cuff and pulse oximeter. Patient's pump was interrogated and reprogrammed. The infusion rate was turned to 0 mcg of ziconotide a day. The patient tolerated the procedure well. Plan and Disposition:: We will see the patient back in 1 week reassess his symptoms at that time. We will discuss potentially taking out the pain pump. He has been instructed to call the office if he has any issues prior to his next appointment. Dr. Bacon has reviewed this note and agrees with this plan of care. This note was dictated using voice recognition software and may contain errors or omissions
== END ==
PROVIDERS: PCP Internal Medicine; Visit Provider Clinical Nurse Specialist Family Health
DX: M51.16 Intervertebral disc disorders with radiculopathy, lumbar region (principal); Z45.1 Encounter for adjustment and management of infusion pump
CPT/HCPCS: 62368

== ENCOUNTER → 2020-08-30 08:48 | Outpatient (POV) | payer MEDICARE, MEDICAID, SELFPAY ==
--- NOTE | 2020-08-30 09:16 | HMH.PAINSOAP ---
[facility] Pain Management SOAP Note Subjective:: Patient is a pleasant 65-year-old white male who presents today for follow-up. At his last visit his intrathecal ziconotide infusion was turned off. He rates his pain a 7 out of 10 he states that there has been no change in his pain however he has had less side effects including headaches. Patient has been discharged from pain management in the past for failed pill count. Patient states today that was due to a phone issue. Patient does have a history of addiction issues that is why we went forward with bupivacaine and ziconotide. Patient will be drug screen today. On his July 08 drug screen he did show positive for oxycodone which he is not prescribed. I asked him today if he would have an appropriate drug screen he assured me he will. We will not make any decisions in regard to his pain pump until we have a additional drug screen. ROS General: no recent weight change, no fever, no sleep disturbances Respiratory: no cough, no shortness of air, no recurring pulmonary infections Cardiovascular/Peripheral Vascular: No chest pain, No palpitations, no edema, no shortness of breath. Gastrointestinal: no new onset incontinence, normal bowel movements reported Genitourinary: no new onset incontinence Musculoskeletal: Back pain, leg pain Psychiatric: normal mood/ affect Neurological: [denies new onset weakness in extremities], [denies new onset balance issues] Objective:: Physical Exam General: Alert and oriented x3, no acute distress, pleasant and cooperative, [on room air] Lungs: Resps E/U, Symmetrical chest expansion, Eyes: PERRL Musculoskeletal: Flexion and extension of lumbar spine somewhat guarded secondary to pain, deep tendon reflexes normal, strength in upper and lower extremities [5/5], [abnormal gait noted] Neurological: speech clear, truck dispatcher equal, no gross sensory deficits Assessment:: Degenerative disc disease lumbar spine lumbar radiculopathy and back pain Plan:: We will wait until the patient's drug screen returns before we make any decisions in regards to his intrathecal infusion. We will leave it off at this time. He has been instructed to call the office if he has any issues. Dr. Bacon has reviewed this note and agrees with this plan of care. This note was dictated using voice recognition software and may contain errors or omissions [facility] History I have reviewed the patient's past medical history: Yes Medical History: Reports:: Asthma, Chronic Obstructive Pulmonary Disease (COPD), Gastroesophageal Reflux Disease(GERD), Hyperlipidemia, Hypertension Denies:: Cancer, Diabetes Mellitus Type 1, Diabetes Mellitus Type 2, Internal Pacemaker, MRSA, Seizures *Have you ever received a pneumonia vaccine?: Yes *Have you received a flu vaccine this season?: Yes Other Medical History: Reports: Arthritis. Denies: Blood Transfusion Reaction Other Surgeries: Yes: Cholecystectomy, Hernia Repair. No: Pacemaker Amputation: No Fractures: No - *Social History Smoking Status: Current every day smoker Tobacco Type: cigarettes # Packs/Day (cigarettes): 1 Alcohol Intake: never Substance Use Type: denies use *Occupational Status:: disabled Housing: house Household Members: spouse *Travel in the last 8 weeks: None Family Hx:: Unable to obtain
[2020-08-30 09:32] VITALS: BP 132/71; PULSE 68; RESP 18; O2SAT 98; BMI 33.9
== END ==
PROVIDERS: Visit Provider Clinical Nurse Specialist Family Health
DX: M51.16 Intervertebral disc disorders with radiculopathy, lumbar region (principal)
CPT/HCPCS: 99212; G0463

== ENCOUNTER → 2020-09-17 12:39 | Outpatient (POV) | payer MEDICARE, MEDICAID, SELFPAY ==
[2020-09-17 13:12] VITALS: BP 125/71; PULSE 69; RESP 20; O2SAT 96; BMI 32.8
--- NOTE | 2020-09-17 13:26 | HMH.PAINSOAP ---
[facility] Pain Management SOAP Note Subjective:: Patient is a pleasant 65-year-old white male who we have been treating for low back pain with lumbar radiculopathy symptoms. He does have an intrathecal pain pump in place. We have tried intrathecal bupivacaine and intrathecal ziconotide with no relief of his symptoms. He is not a candidate for any opioid therapy. We also did a recent drug screen which did show positive for hydrocodone, oxycodone and methamphetamines. The patient denies any use of these substances and currently he is not prescribed any oxycodone or hydrocodone. I told the patient that we cannot prescribe him anything or add anything to his intrathecal pain pump. We will offer him injections and neurosurgical evaluation if he wants. Objective:: Alert and oriented x3 no acute distress. Patient does have an antalgic gait. Most of his pain is in his low back. Motor strength of the lower extremities is 5/5. There is no gross sensory deficit. Assessment:: Degenerative disc disease of lumbar spine with lumbar radiculopathy symptoms Plan:: We will follow-up with him on a as needed basis. We will offer her neurosurgical evaluation at . Patient does not want any injections at this time. [facility] History Medical History: Reports:: Asthma, Chronic Obstructive Pulmonary Disease (COPD), Gastroesophageal Reflux Disease(GERD), Hyperlipidemia, Hypertension Denies:: Cancer, Diabetes Mellitus Type 1, Diabetes Mellitus Type 2, Internal Pacemaker, MRSA, Seizures *Have you ever received a pneumonia vaccine?: No *Have you received a flu vaccine this season?: No Other Medical History: Reports: Arthritis. Denies: Blood Transfusion Reaction Other Surgeries: Yes: Cholecystectomy, Hernia Repair. No: Pacemaker Amputation: No Fractures: No - *Social History Smoking Status: Current every day smoker Tobacco Type: cigarettes # Packs/Day (cigarettes): 1 Alcohol Intake: never Substance Use Type: denies use *Occupational Status:: unemployed Housing: house Household Members: spouse *Travel in the last 8 weeks: None Family Hx:: Unable to obtain
== END ==
PROVIDERS: PCP Internal Medicine; Visit Provider Anesthesiology
DX: M51.16 Intervertebral disc disorders with radiculopathy, lumbar region (principal)
CPT/HCPCS: 99212; G0463

== ENCOUNTER → 2020-09-30 14:49 | Outpatient (CLI) | payer MEDICARE, MEDICAID, SELFPAY | PROVIDERS: PCP Internal Medicine; Visit Provider Clinical Nurse Specialist Family Health | DX: M54.5 Low back pain (principal) ==

== ENCOUNTER → 2020-10-28 14:32 | Outpatient (CLI) | payer MEDICARE, MEDICAID, SELFPAY ==
--- NOTE | 2020-10-28 14:36 | CT_ITS ---
PROCEDURE: CT LUMBAR SPINE WO CON CLINICAL HISTORY: BACK PAIN Mid back pain [id number] COMPARISON: CT ABDPELW CT ABD PELVIS W/ CONTRAST from 02/01/2015 TECHNIQUE: Axial images obtained with sagittal and coronal reformats. All CT scans at the facility use one or more dose reduction, viz: automated exposure control, ma/kV adjustment per patient size (including targeted exams where dose is matched to indication, i.e. head), or iterative reconstruction technique. FINDINGS: There is normal alignment. An epidural stimulator device is noted on the head cager image overlying the T9-T10 level. Pain pump is present with the catheter projected cephalad with the tip at the T12 level. T11-T12: Mild degenerative disc disease. T12-L1: Mild degenerative disc disease. L1-L2: Unremarkable. L2-L3: Facet and ligamentum hypertrophic change with mild bilateral lateral recess narrowing L3-L4: Bulging disc slightly eccentric to the right with facet and ligamentum hypertrophic changes with canal stenosis. There is right lateral recess narrowing and mild bilateral foraminal narrowing. There is prominent inferior facet at L3 with a well-circumscribed lucency transverse in nature involving the inferior facet at L3 on the right and may be due to old fracture or ununited ossification center. This is best seen on series 605 image 26 through 29. This is not significantly changed compared to an old abdomen CT of 02/01/2015 the spinous process of L3 has an abnormal appearance hypoplastic compared to the remaining spinous processes. Has the patient had prior lumbar surgery? L4-5: Bulging disc which is eccentric toward the right with broad-based central disc protrusion with facet and ligamentum hypertrophic change with canal stenosis bilateral lateral recess and foraminal narrowing. L5-S1: Transitional segment at L5. There are nonobstructing bilateral renal calculi measuring up to 4 mm on the right and 3 mm on the left. IMPRESSION: Abnormal CT of the lumbar spine as described above with degenerative changes, bulging and protruding discs, facet and ligamentum hypertrophy with canal stenosis. Please see above for detailed description at each level. Dictated by: Kp Woods MD 10/29/2020 05:49 Kp Woods MD in [place] 10/29/2020 05:49
== END ==
PROVIDERS: PCP Internal Medicine; Visit Provider Clinical Nurse Specialist Family Health
DX: M54.5 Low back pain (principal)
CPT/HCPCS: 72131

== ENCOUNTER → 2020-11-04 09:05 | Outpatient (POV) | payer MEDICARE, MEDICAID, SELFPAY ==
[2020-11-04 09:17] VITALS: BP 136/78; PULSE 70; RESP 18; O2SAT 97; BMI 32.8
--- NOTE | 2020-11-04 09:31 | HMH.PAINSOAP ---
[facility] Pain Management SOAP Note Subjective:: Patient is a 65-year-old white male who presents today for follow-up. Patient recently underwent a CT scan of his lumbar spine. Patient has been treated in the clinic for degenerative disc disease lumbar spine with lumbar radicular symptoms. Patient does have a stimulator in place [employer], model #7805. Patient says it is with this number in our documentation, as radiology has requested this information with previous exams. Patient is complaining of low back pain with radiation into lower extremities. He also has an intrathecal pain pump for which he previously had sick contact. He did not get any relief from either device. Patient says his pain is continuing to worsen. He did have a positive drug screen in the past for hydrocodone, oxycodone, and methamphetamines. As result we were unable to provide patient with opiates in his intrathecal pump. He rates his pain a 7 out of 10 today. His pain is in his low back and bilateral shoulders. He has undergone injective therapy in our clinic in the past with no significant relief. He has bilateral shoulder pain for which she has gotten intra-articular shoulder injections, none of which have given him relief. He says he did undergo injective therapy with his primary care provider in the past to his shoulders which did give him up to 5 years of relief. He says the injections given to him in our clinic have not been beneficial for his pain. Injections in his low back have also not given him any relief. He does continue with limited home stretching. He has requested a neurosurgical evaluation as well as an orthopedic evaluation for his continued pain. He understands at this point we are limited in our clinic with options of treatment due to positive drug screens in the past. Injections have not been helping the patient. Review of Systems General: No recent weight changes, no fever, no sleep disturbances Respiratory: No cough, no shortness of air, no recurring pulmonary infections Cardiovascular/peripheral vascular: No chest pain, no palpitations, no edema, no shortness of breath Gastrointestinal: No new onset incontinence, normal bowel movements reported Genitourinary: No new onset incontinence Musculoskeletal: Bilateral shoulder pain worse with movement, low back pain with radiation into bilateral lower extremities Psychiatric: Normal mood/affect Neurological: Weakness in bilateral lower extremities Objective:: Physical exam General: Alert and oriented x3, no acute distress, pleasant and cooperative, [on room air] Lungs: Respirations even and unlabored, symmetrical chest expansion Eyes: PERRL Musculoskeletal: Flexion and extension of lumbar spine somewhat guarded secondary to pain, deep tendon reflexes normal, strength in upper and lower extremities [5/5], [abnormal gait noted] Neurological: Speech clear, support group manager equal, no gross sensory deficit Assessment:: Degenerative disc disease lumbar spine with lumbar radiculopathy symptoms, bilateral shoulder pain, osteoarthritis bilateral shoulders Plan:: We we will schedule patient for neurosurgical evaluation for his lumbar spine. He continues to have significant pain despite treatment given in the clinic. He has undergone physical therapy for greater than 6 weeks in the past. He has tried oral medications, however, did have an abnormal drug screen with methamphetamines, hydrocodone, and oxycodone. Patient also has a stimulator in an intrathecal pain pump which do not give him relief. The intrathecal pain pump is no longer turned on. He did previously have ziconotide in that pump. He would also like a referral for orthopedics for his bilateral shoulders. We have given the patient intra-articular shoulder injections with no significant relief. We will follow-up with him after his consult and referrals for further plan of care. We are limited in the clinic with options for the patient at
== END ==
PROVIDERS: PCP Internal Medicine; Visit Provider Clinical Nurse Specialist Family Health
DX: M51.16 Intervertebral disc disorders with radiculopathy, lumbar region (principal); M19.012 Primary osteoarthritis, left shoulder; M19.011 Primary osteoarthritis, right shoulder
CPT/HCPCS: 99212; G0463

== ENCOUNTER → 2020-12-10 09:15 | Outpatient (CLI) | payer MEDICARE, MEDICAID, SELFPAY ==
--- NOTE | 2020-12-10 09:19 | XR_ITS ---
PROCEDURE: XR SHOULDER LT MIN 2V CLINICAL INDICATION: BL shoulder pain COMPARISON: CR XR SHOULDER LT MIN 2V from 07/08/2020 FINDINGS: No fracture or dislocation. No lytic or blastic change. There is normal mineralization. Slight decrease in the joint space inferiorly at the glenohumeral joint. Minimal osteoarthritic change of the AC joint Other findings:Minimal cortical irregularity noted at the greater tuberosity and could be seen with rotator cuff disease. IMPRESSION: Cortical irregularity at the greater tuberosity which may be seen with rotator cuff disease otherwise negative Minimal osteoarthritic change of the glenohumeral joint and AC joint Dictated by: Kp Woods MD 12/10/2020 12:23 Kp Woods MD in [place] 12/10/2020 12:23
--- NOTE | 2020-12-10 09:19 | XR_ITS ---
PROCEDURE: XR SHOULDER RT MIN 2V CLINICAL INDICATION: BL shoulder pain COMPARISON: CR XR SHOULDER LT MIN 2V from 07/08/2020 FINDINGS: No fracture or dislocation. No lytic or blastic change. There is normal mineralization. Minimal osteoarthritic change at the acromioclavicular joint. Mild subacromial stenosis. Glenohumeral joint has an unremarkable appearance. Other findings:None. IMPRESSION: Minimal osteoarthritic change of the AC joint with mild subacromial stenosis Dictated by: Kp Woods MD 12/10/2020 12:22 Kp Woods MD in [place] 12/10/2020 12:22
== END ==
PROVIDERS: PCP Internal Medicine; Visit Provider Orthopaedic Surgery
DX: M25.511 Pain in right shoulder (principal); M25.512 Pain in left shoulder
CPT/HCPCS: 73030

== ENCOUNTER → 2020-12-30 11:58 | Outpatient (CLI) | payer MEDICARE, MEDICAID, SELFPAY ==
--- NOTE | 2020-12-30 12:02 | IR_ITS ---
PROCEDURE: CT SHOULDER LT W CON LEFT SHOULDER ARTHROGRAM CLINICAL HISTORY: PAIN COMPARISON: CR XR SHOULDER LT MIN 2V from 12/10/2020 CR,RF IR ARTHROGRAM SHOULDER LT from 12/30/[address] SHOULDER LT W CON from 12/30/2020 TECHNIQUE: Following obtaining informed consent and time-out procedure using fluoroscopic guidance under aseptic conditions and local anesthesia with 1 percent buffered lidocaine, 20 gauge spinal needle was inserted into the left shoulder joint via the anterior approach. A mixture of Isovue-300 and lidocaine was injected into the joint space under fluoroscopic guidance. The patient tolerated the procedure well without evidence of immediate complications. Images are obtained in external and internal rotation. The patient left the radiology suite in stable condition and went to CT where CT arthrogram images were performed. Axial images obtained with sagittal and coronal reformats. All CT scans at the facility use one or more dose reduction, viz: automated exposure control, ma/kV adjustment per patient size (including targeted exams where dose is matched to indication, i.e. head), or iterative reconstruction technique. FINDINGS: Arthrogram: There was normal localization of contrast within the shoulder joint and sub coracoid bursa. There was no abnormal localization of contrast within the subacromial region during the arthrogram. There is no evidence of adhesive capsulitis. CT arthrogram: There is a full-thickness tear involving the mid and anterior aspect of the supraspinatus tendon distally with abnormal contrast localization at this region. The posterior aspect of the supraspinatus tendon does appear to be intact. The infraspinatus tendon, teres minor tendon, and subscapularis tendons appear unremarkable. No obvious labral tear. The bicipital tendon is in place. There is subacromial stenosis with hypertrophic changes along the inferior aspect of the acromion. The subacromial space is approximately 5 mm. IMPRESSION: Findings are compatible with a full-thickness tear involving the mid and anterior aspect of the left supraspinatus tendon distally with subacromial stenosis and osteophytes along the inferior aspect of the acromion Dictated by: Kp Woods MD 12/31/2020 12:39 Kp Woods MD in [place] 12/31/2020 12:47
== END ==
PROVIDERS: PCP Internal Medicine; Visit Provider Orthopaedic Surgery
DX: M25.512 Pain in left shoulder (principal)
CPT/HCPCS: 73040; 73201; Q9967

== ENCOUNTER → 2021-04-18 10:39 | Outpatient (POV) | payer MEDICARE, MEDICAID, SELFPAY ==
[2021-04-18 10:50] VITALS: BP 158/77; PULSE 76; RESP 18; O2SAT 97; BMI 32.8
--- NOTE | 2021-04-18 11:01 | HMH.PAINSOAP ---
[facility] Pain Management SOAP Note Subjective:: Patient is a 66-year-old white male who presents today for discussion of explant of the pump. Patient was seen in our clinic on 11/04/2020. He was previously seen in a pain clinic in [facility] with Dr. Kilpatrick and was discharged due to concerns of noncompliance-failure to appear for pill count with Dr. Shan Kilpatrick office. Patient did come to us, accompanied by his sister. Patient is illiterate and does have his sister present for most visits. He has chronic shoulder pain as well as chronic low back pain and lower extremity pain. The patient does have a spinal cord stimulator [employer] model for lower extremity pain. He says he does get some relief of his bilateral lower extremities. This was implanted from a previous clinic. He did come to us with continued low back pain and mid back pain. As result we did place the patient with an intrathecal pain pump. The patient reports he has not gotten any significant relief with the pump. In the past, he has had a positive drug screen for hydrocodone, oxycodone and methamphetamines. As result, the patient was informed we cannot place intrathecal opiates into the pump. He has been given bupivacaine as well as Vasquez tried in the past. Patient says that he has been without medication in his pump for months. He wants the pump explanted. He is not open to trying a different medication. He says that he is also not open to being seen in our clinic any longer if we cannot provide him with oral medications. He is accompanied by his sister today. The sister, Alma Renee, is unhappy that we are unable to provide the patient with oral medications. The patient does say that he has never taken medications not prescribed to him. Patient's last drug screen in September 2020 did show positive results for hydrocodone, oxycodone, and methamphetamines. The patient had been prescribed tramadol in the past however was not prescribed any other medications. We have referred the patient to orthopedics as well as neurosurgery. He is scheduled for a shoulder surgery with Dr. Rodriguez as well as lumbar spine surgery with [facility]. Patient is inquiring about other pain management clinics. His sister has asked that we provide them with other physicians names and phone numbers so that he may be able to get oral medications. Patient does rate his pain a 9 out of 10. Patient does state bupivacaine caused him to have severe numbness in his lower extremities. He also says out of contact I did not give him any relief. Review of Systems General: No recent weight changes, no fever, no sleep disturbances Respiratory: No cough, no shortness of air, no recurring pulmonary infections Cardiovascular/peripheral vascular: No chest pain, no palpitations, no edema, no shortness of breath Gastrointestinal: No new onset incontinence, normal bowel movements reported Genitourinary: No new onset incontinence Musculoskeletal: Left shoulder pain, low back pain, bilateral lower extremity pain Psychiatric: [Normal mood/affect] Neurological: [Denies weakness in extremities], [denies balance issues] Objective:: Physical exam General: Alert and oriented x3, no acute distress, pleasant and cooperative Lungs: Respirations even and unlabored, symmetrical chest expansion Eyes: PERRL Musculoskeletal: Flexion and extension of lumbar [spine] somewhat guarded secondary to pain, [antalgic gait noted] Neurological: Speech clear, no gross sensory deficit Assessment:: Degenerative disc disease lumbar spine with lumbar radiculopathy symptoms, shoulder pain, osteoarthritis bilateral shoulders Plan:: Unfortunately, the patient is not interested in proceeding with intrathecal therapy. He did have a positive drug screen which noted the patient to be positive for hydrocodone, oxycodone, and methamphetamines. He has not had his pump refilled over the last few months. He does have a stimulator?[employer], in place he s
== END ==
PROVIDERS: Visit Provider Clinical Nurse Specialist Family Health
DX: M51.16 Intervertebral disc disorders with radiculopathy, lumbar region (principal); M19.012 Primary osteoarthritis, left shoulder; M19.011 Primary osteoarthritis, right shoulder
CPT/HCPCS: 99212; G0463

== ENCOUNTER → 2021-05-18 11:08 | Outpatient (CLI) | payer MEDICARE, SELFPAY ==
--- NOTE | 2021-05-18 11:32 | ECG_ITS ---
APPROVED REPORT Exam: Resting ECG HR:57 bpm ECG Measurements Heart Rate 57 AXES AK 152 P 26 QRSd 90 QRS 35 QT 412 T 53 QTc 401 Conclusion Sinus bradycardia Otherwise normal ECG Electronically signed by : Olegario Mcgill MD 05/19/2021 13:44:04
[2021-05-18 12:06] LABS: Basophils # 0.1 K/mm3 (0-0.2); Basophils % 1.4 % (0.1-2.0); Eosinophils # 0.2 K/mm3 (0.0-0.4); Eosinophils % 2.4 % (0.1-12.0); Hematocrit 50.5 % (42.0-52.0); Hemoglobin 16.3 g/dL (14.1-18.0); Lymphocytes % 33.4 % (10-50); Mean Corpuscular HGB Conc 32.4 g/dL (31.8-35.4); Mean Corpuscular Hemoglobin 32.6 pg (27.0-31.2); Mean Corpuscular Volume 100.7 fl (80-94); Mean Platelet Volume 8.6 fl (7.4-10.4); Monocytes # 0.6 K/mm3 (0.1-1.0); Monocytes % 6.4 % (1.7-9.3); Neutrophils # 5.1 K/mm3 (1.8-7.8); Neutrophils % 56.4 % (37.0-80.0); Platelet Count 276 K/mm3 (142-424); Red Blood Count 5.01 M/mm3 (4.60-6.20); Red Cell Distribution Width 13.5 % (11.5-17.5)
[2021-05-18 12:31] LABS: Blood Urea Nitrogen 13 mg/dl (9-20); Estimated Glomerular Filt Rate 97 ml/min (>60); GFR (African American) 117 ML/MIN (>60)
[2021-05-18 12:48] LABS: Chloride 103 mmol/L (98-107)
[2021-05-18 12:49] LABS: Potassium 4.7 mmoL/L (3.5-5.1); Sodium 141 mmol/L (136-145)
[2021-05-18 12:51] LABS: Alanine Aminotransferase 36 U/L (12-78); Alkaline Phosphatase 74 U/L (38-126); Aspartate Amino Transferase 33 U/L (17-59); Bilirubin,Total 0.6 mg/dl (0.2-1.3)
[2021-05-18 12:52] LABS: Albumin Level 4.5 g/dl (3.5-5.0); Albumin/Globulin Ratio 1.5 (1.1-1.8); Anion Gap 13.7 mEq/L (5-15); Calcium 9.6 mg/dl (8.4-10.2); Carbon Dioxide 29 mmol/L (22.0-30.0); Glucose 115 mg/dl (74-100); Total Protein,Serum 7.5 g/dl (6.3-8.2)
== END ==
PROVIDERS: PCP Internal Medicine; Visit Provider Orthopaedic Surgery
DX: Z01.818 Encounter for other preprocedural examination (principal)
CPT/HCPCS: 36415; 80053; 85025; 93005

== ENCOUNTER → 2021-05-28 16:00 | Outpatient (CLI) | payer MEDICARE, MEDICAID, SELFPAY ==
--- NOTE | 2021-05-29 10:05 | PC.NURSE ---
Spoke with Dr Rodriguez, pt has positive COVID swab. Per MD call pt and let him know that he will NOT be having urgery on 05/30 and that the pt needs to call the office to reschedule. pt notified at 1003
== END ==
PROVIDERS: Visit Provider Orthopaedic Surgery
DX: Z01.818 Encounter for other preprocedural examination (principal); U07.1 COVID-19
CPT/HCPCS: C9803; U0003; U0005

== ENCOUNTER → 2021-11-29 11:47 | Outpatient (CLI) | payer MEDICARE, MEDICAID, SELFPAY ==
--- NOTE | 2021-11-29 11:51 | XR_ITS ---
FINAL REPORT CLINICAL HISTORY: shoulder pain COMPARISON: December 10, 2020 FINDINGS: Internal and external rotation views of the left shoulder were obtained. There is no fracture or dislocation. There is mild degenerative joint disease which is stable. Soft tissues are normal. IMPRESSION: No acute osseous abnormality of the left shoulder. Stable mild degenerative joint disease. Reviewed, Interpreted and Dictated by Michelle Olivera MD Transcribed by Anjelica Davison Authenticated and [facility]
== END ==
PROVIDERS: PCP Pediatrics; Visit Provider Orthopaedic Surgery
DX: M25.512 Pain in left shoulder (principal)
CPT/HCPCS: 73030

== ENCOUNTER → 2021-12-27 09:15 | Outpatient (CLI) | payer MEDICARE, MEDICAID, SELFPAY ==
[2021-12-27 10:08] LABS: Basophils # 0.1 K/mm3 (0-0.2); Basophils % 1.6 % (0.1-2.0); Eosinophils # 0.2 K/mm3 (0.0-0.4); Eosinophils % 2.8 % (0.1-12.0); Hematocrit 53.1 % (42.0-52.0); Hemoglobin 16.4 g/dL (14.1-18.0); Lymphocytes # 2.6 K/mm3 (0.7-4.5); Lymphocytes % 35.9 % (10-50); Mean Corpuscular HGB Conc 30.8 g/dL (31.8-35.4); Mean Corpuscular Hemoglobin 32.3 pg (27.0-31.2); Mean Corpuscular Volume 104.7 fl (80-94); Mean Platelet Volume 8.5 fl (7.4-10.4); Monocytes # 0.5 K/mm3 (0.1-1.0); Neutrophils # 3.8 K/mm3 (1.8-7.8); Neutrophils % 52.7 % (37.0-80.0); Platelet Count 240 K/mm3 (142-424); Red Blood Count 5.07 M/mm3 (4.60-6.20); Red Cell Distribution Width 13.7 % (11.5-17.5); White Blood Count 7.2 K/mm3 (4.8-10.8)
[2021-12-27 10:26] LABS: Chloride 104 mmol/L (98-107)
[2021-12-27 10:27] LABS: Potassium 4.5 mmoL/L (3.5-5.1); Sodium 139 mmol/L (136-145)
[2021-12-27 10:29] LABS: Alanine Aminotransferase 36 U/L (12-78); Alkaline Phosphatase 81 U/L (38-126); Anion Gap 11.5 mEq/L (5-15); Aspartate Amino Transferase 33 U/L (17-59); Bilirubin,Total 0.3 mg/dl (0.2-1.3); Blood Urea Nitrogen 17 mg/dl (9-20); Carbon Dioxide 28 mmol/L (22.0-30.0); Estimated Glomerular Filt Rate 85 ml/min (>60); GFR (African American) 102 ML/MIN (>60)
[2021-12-27 10:30] LABS: Albumin Level 4.5 g/dl (3.5-5.0); Albumin/Globulin Ratio 1.6 (1.1-1.8); Calcium 8.9 mg/dl (8.4-10.2); Globulin 2.8 g/dL (1.3-3.2); Glucose 166 mg/dl (74-100); Total Protein,Serum 7.3 g/dl (6.3-8.2)
[2021-12-27 10:55] LABS: Erythrocyte Sedimentation Rate 3 mm/hr (0-20)
== END ==
PROVIDERS: PCP Internal Medicine; Visit Provider Orthopaedic Surgery
DX: Z01.818 Encounter for other preprocedural examination (principal); M47.816 Spondylosis without myelopathy or radiculopathy, lumbar region; Z20.822 Contact with and (suspected) exposure to COVID-19
CPT/HCPCS: 36415; 80053; 85025; 85651; C9803; U0003; U0005

== ENCOUNTER 2021-12-29 06:00 | Day surgery (SDC) | payer MEDICARE, MEDICAID, SELFPAY ==
[2021-12-26 09:33] VITALS: BMI 32.3
[2021-12-29] VITALS (11 sets, daily range): BP systolic 120–163; BP diastolic 57–88; PULSE 76–85; RESP 12–18; TEMP 36.1–43; O2SAT 93–98
--- NOTE | 2021-12-29 06:14 | XR_ITS ---
PROCEDURE INFORMATION: Exam: XR Chest Exam date and time: 12/29/2021 6:14 AM Age: 66 years old Clinical indication: Screening exam; Other screening; Patient HX: Pre-op, smoker, hypertension; Additional info: Preop order TECHNIQUE: Imaging protocol: Radiologic exam of the chest. Views: 1 view. COMPARISON: CR XR SHOULDER LT MIN 2V 11/29/2021 11:55 AM FINDINGS: Lungs: Unremarkable. No consolidation. Pleural spaces: Unremarkable. No pleural effusion. No pneumothorax. Heart/Mediastinum: Unremarkable. No cardiomegaly. Bones/joints: Unremarkable. IMPRESSION: No acute findings.
--- NOTE | 2021-12-29 06:19 | ECG_ITS ---
APPROVED REPORT Exam: Resting ECG HR:80 bpm ECG Measurements Heart Rate 80 AXES MS 366 P -80 QRSd 110 QRS 31 QT 366 T 59 QTc 401 Conclusion ELECTRONIC ATRIAL PACEMAKER ELECTRONIC VENTRICULAR PACEMAKER ABNORMAL RHYTHM ECG UNCONFIRMED REPORT Electronically signed by : Olegario Mcgill MD 12/31/2021 08:09:14
--- NOTE | 2021-12-29 07:16 | EXP.ANES.CKL ---
PFSH PFSH Medical History (Updated 12/29/21 @ 06:46 by Richard Ahumada RN) Arthritis Asthma HTN (hypertension) Hyperlipidemia Kidney stones Prostate atrophy Surgical History (Updated 12/29/21 @ 06:46 by Richard Ahumada RN) H/O myringotomy Family History (Updated 12/29/21 @ 06:46 by Richard Ahumada RN) Other No significant past medical history Social History (Updated 12/29/21 @ 06:56 by Richard Ahumada RN) Smoking Status: Current every day smoker tobacco type: cigarettes packs per day: 1 second hand exposure: No alcohol intake: never substance use type: denies use current occupational status: retired household members: spouse housing: house current occupational exposures/hazards: No caffeine: Yes
--- NOTE | 2021-12-29 08:54 | EXP.ANES.CKL ---
PFSH PFSH Medical History (Updated 12/29/21 @ 06:46 by Richard Ahumada RN) Arthritis Asthma HTN (hypertension) Hyperlipidemia Kidney stones Prostate atrophy Surgical History (Updated 12/29/21 @ 06:46 by Richard Ahumada RN) H/O myringotomy Family History (Updated 12/29/21 @ 06:46 by Richard Ahumada RN) Other No significant past medical history Social History (Updated 12/29/21 @ 07:18 by Guille Khoury CRNA) Smoking Status: Current every day smoker tobacco type: cigarettes packs per day: 1 second hand exposure: No alcohol intake: never substance use type: denies use current occupational status: retired Travel in the last 8 weeks: None household members: spouse housing: house current occupational exposures/hazards: No caffeine: Yes
--- NOTE | 2021-12-29 10:41 | SUR.OPER ---
1040- family updated of pt current status at this time
--- NOTE | 2021-12-29 12:47 | SUR.OPER ---
1240- made open incision at 1240.
--- NOTE | 2021-12-29 13:55 | EXP.ANES.I ---
[facility] Anesthesia Record Part I Anesthesia Record I Intake, IV Amount: 2,000 Estimated blood loss (mL): 0 Urine output (mL): 600 Blood Pressure: 155/82 SaO2: 93 Pulse Rate: 85 Respiratory Rate: 12 Temperature: 97 F Patient is:: Awake and Stable Stable to PACU at:: 13:40
--- NOTE | 2021-12-29 13:59 | SUR.OPER ---
1230- 1g ancef given IVPB by kane cherry per md gabriel verbal orders
--- NOTE | 2021-12-29 14:19 | SUR.PHASEI ---
LATE ENTRY 1408 called and gave detailed report to Julian Coleman RN 1410 transported via stretcher to post op. vital signs stable. denies pain. left in stable condition with Julian Coleman RN at bedside.
--- NOTE | 2021-12-29 14:33 | EXP.OP.NOTE ---
Date of procedure: 01/05/22 Pre-op Diagnosis:: 1. Complete full-thickness Rotator cuff tear, LEFT shoulder 2. Biceps tendinopathy, LEFT shoulder 3. Subacromial bursitis, LEFT shoulder 4. Subacromial impingement, LEFT shoulder 5. Acromioclavicular joint arthritis, LEFT shoulder Post-op Diagnosis:: 1. Rotator cuff tear, LEFT shoulder (Full thickness tear of the supraspinatus tendon) 2. Biceps tendinopathy, LEFT shoulder 3. Subacromial bursitis, LEFT shoulder 4. Subacromial impingement, LEFT shoulder 5. Degenerative labrum and synovitis, LEFT glenohumeral joint 6. Acromioclavicular joint arthritis, LEFT shoulder Procedure performed:: 1. Arthroscopic rotator cuff repair, LEFT shoulder. 2. Arthroscopic subacromial decompression with subacromial and subdeltoid bursectomy and a bony acromioplasty, LEFT shoulder 3. Arthroscopic glenohumeral joint debridement, LEFT shoulder 4. Arthroscopic biceps tenodesis, LEFT shoulder 5. Open distal clavicle excision, LEFT shoulder Surgeon:: Rohan Rodriguez MD Spinner Tender(s):: Devorah Gamble PA-C [employer]IO REPAIRER:: Homero Fairchild Anesthesia: GETA and regional (Interscalene nerve block) Estimated blood loss (mL): 10 Clinical Note:: Patient is a 66-year-old [id number] male with chronic pain and disability in his LEFT shoulder for the last 2 to 3 years. There is no history of any injury. He had weakness and difficulty with the use of the arm. Patient has a pain pump and spinal stimulator because of which he could not have MRI scan. A CT arthrogram previously demonstrated a full-thickness rotator cuff tear. Patient failed to respond satisfactorily to nonsurgical management including NSAIDs, local steroid injections and physical therapy. Patient was previously scheduled for surgery in May this year but it was canceled as he tested positive for COVID. After discussion of the risks and benefits of the surgical versus nonsurgical management, he elected to proceed with surgical remediation.?He is a chronic smoker and does not work because of disability. Please refer to my office note for full details. Operative findings:: There is a full-thickness crescent-shaped complete tear of the supraspinatus tendon. The biceps tendon showed some fraying at the biceps anchor. The labrum was frayed and partially detached around the biceps anchor.? The articular surface of the humerus and the glenoid are well preserved with no evidence of any full-thickness cartilage loss. There was extensive subacromial and sub deltoid bursitis and the acromion had undersurface spurring over the anterolateral margin. There was marked synovitis and intrasubstance tearing of the extra-articular biceps tendon in the bicipital groove. Operative note:: On the day of the procedure, the patient was positively identified in the preoperative area, the surgical site was marked and initialed by me. I performed a general physical examination, reviewed the consent form, his clinical and diagnostic information. We again had a detailed discussion about the diagnosis, natural history and management options including both nonsurgical and surgical options for his shoulder. Nonsurgical alternatives discussed include physical therapy, activity modification NSAIDs and effective pain management. Given the symptoms, clinical and imaging findings, functional status, patient is opting for surgical remediation.? I have discussed the surgical option best suited for his shoulder- an arthroscopic/open rotator cuff repair, glenohumeral joint debridement, distal clavicle excision, biceps tenotomy versus tenodesis and subacromial decompression. I told the patient that there were no guarantees with surgery; he could be no better or even worse. The complications discussed include but are not limited to infection, injury to nerves and blood vessels, bleeding, hematoma, tendon injury, fluid extravasation, chondrolysis, injury to the articular surface, instrument failure, DVT/PE, incomplete relief/contin
[2021-12-29 15:20] LABS: Microscopic,Cath URINE MICROSCOPIC (MICROSCOPIC)
[2021-12-29 15:26] LABS: Appearance,Urine/Cath CLEAR (Clear); Bilirubin,Cath Negative (Negative); Blood, Urine/Cath 1+ (Negative); Color,Urine/Cath YELLOW (Yellow); Glucose,Urine/Cath (UA) Negative (Negative); Ketones,Urine/Cath Negative (Negative); Leukocyte Esterase,Cath Negative (Negative); Nitrate,Cath Negative (Negative); Protein,Urine/Cath Negative (Negative); Specific Gravity, Urine/Cath 1.025 (1.005-1.030); Urobilinogen,Cath 0.2 EU/dl (0.2)
[2021-12-29 16:06] LABS: Bacteria,Urine/Cath TRACE /lpf; Mucus,Urine/Cath Trace /lpf; RBC,Urine/Cath Occasional # /hpf (0-3); Squamous Epithelial Ur./Cath Occasional #/hpf (0-5)
--- NOTE | 2021-12-30 09:51 | EXP.ANES.II ---
[facility] Anesthesia Record Part II Anesthesia Record Part II Discharge Time: 14:10 Destination: Surgical Day Care (OP Surgery) PACU nurse assessment reviewed?: Yes Patient Condition:: Good Anesthesia Complications:: None Swallowing reflex intact?: Yes Cyanosis?: No Blood Pressure: 136/69 Pulse Rate: 82 Temperature: 97.7 F Mental Status: Alert & Oriented Pain level:: 0 Nausea and/or vomitting:: None Intake, IV Amount: 0
[2021-12-30 09:58] VITALS: BP 136/69; PULSE 82; TEMP 36.5
== END 2021-12-29 15:05 | disposition home or self-care (01) ==
PROVIDERS: PCP Internal Medicine; Visit Provider Orthopaedic Surgery
PROC: (CPT 29827; principal; 2021-12-29 07:30)
DX: M75.122 Complete rotator cuff tear or rupture of left shoulder, not specified as traumatic (principal); M25.512 Pain in left shoulder; M75.42 Impingement syndrome of left shoulder; M75.52 Bursitis of left shoulder; M75.22 Bicipital tendinitis, left shoulder; M19.012 Primary osteoarthritis, left shoulder; J44.1 Chronic obstructive pulmonary disease with (acute) exacerbation; I10 Essential (primary) hypertension; E78.5 Hyperlipidemia, unspecified; K21.9 Gastro-esophageal reflux disease without esophagitis; F17.210 Nicotine dependence, cigarettes, uncomplicated; Z79.899 Other long term (current) drug therapy
CPT/HCPCS: 29826; 29827; 29828; 71045; 81001; 93005; 96374; C1713; J2405

== ENCOUNTER → 2022-03-21 09:18 | Outpatient (CLI) | payer MEDICARE, MEDICAID, SELFPAY ==
--- NOTE | 2022-03-21 09:24 | XR_ITS ---
FINAL REPORT CLINICAL HISTORY: s/p RCR FINDINGS: LEFT SHOULDER 3 views of the left shoulder were obtained. There are orthopedic anchors in the humeral head. There is no acute fracture or dislocation. There is abnormal widening of the acromioclavicular joint space measuring up to 2 cm. Recommend clinical correlation.. There is no soft tissue abnormality. IMPRESSION: Postoperative change with abnormal widening of the acromioclavicular joint. Findings may be related to prior partial resection of the distal clavicle or underlying ligamentous disruption. Reviewed, Interpreted and Dictated by Michael Vera MD Transcribed by Megha Swain Authenticated and [facility]
== END ==
PROVIDERS: PCP Internal Medicine; Visit Provider Physician Assistant Surgical
DX: Z09 Encounter for follow-up examination after completed treatment for conditions other than malignant neoplasm (principal); M25.512 Pain in left shoulder
CPT/HCPCS: 73030